=== PATIENT | female | born 1950 | race Caucasian/White ===

== ENCOUNTER → 2025-01-15 | Outpatient (CLI) | payer MEDICARE, BC ==
--- NOTE | 2025-01-17 14:10 | PE ---
EXAMINATION TYPE: PET CT fusion skull to thigh DATE OF EXAM: 01/16/2025 CLINICAL INDICATION:Female, 74 years old with history of R91.1 LUNG NODULE; TECHNIQUE: Following the intravenous administration of 8.9 mCi of F-18 FDG, whole body images are p erformed from the skull base to the Mid thigh. Images are reviewed on the computer in the coronal, a xial, and sagittal planes. Reconstructed rotating images are created on independent workstation and reviewed on the computer. A non-contrast CT is performed in conjunction with the PET scan. Glucose level 97 mg/dL CT DLP: 233 mGycm, Automated exposure control for dose reduction was used. COMPARISON: CT none, PET/CT None, MRI: None FINDINGS: Mediastinal SUV mean is 2.5. Hepatic parenchyma SUV mean is 4.0. SKULL BASE AND NECK: * No suspicious radiotracer activity. * Suspected physiologic diffuse uptake throughout the salivary glands. CHEST, MEDIASTINUM, AND HILAR REGION: * Right upper lobe somewhat spiculated nodule measuring 15 x 9 mm Max SUV 10.2. * No enlarged FDG avid lymph nodes identified. ABDOMEN AND PELVIS: Focus of uptake within the left adrenal gland which is poorly visualized on noncontrast CT SUV 5.1. MUSCULOSKELETAL STRUCTURES: No suspicious radiotracer activity. OTHER CT: Severe atherosclerosis of the arterial vasculature. Moderate to severe coronary artery athe rosclerosis. Aortic valve consultations are present. Infrarenal abdominal aortic dilation up to 29 mm . Large stool burden throughout the colon. Nonobstructing right 2 mm calculus. No left renal calculi. IMPRESSION: 1. Right upper lobe 15 x 8 mm pulmonary nodule with increased uptake compatible with malignancy. 2. No enlarged mediastinal lymph nodes to suggest mediastinal metastatic disease. 3. Indeterminate left adrenal focus of uptake given lack of other evidence for metastatic disease, t his is favored to be benign. 4. Diffuse uptake throughout the salivary glands, likely physiologic. [facility], , 01/17/2025 2:08 PM
== END | disposition home or self-care (01) ==
LOC: RADPETMAIN 15:27
PROVIDERS: ATTEND Internal Medicine
DX: R91.1 Solitary pulmonary nodule (principal)
CPT/HCPCS: 78815; A9552

== ENCOUNTER → 2025-01-27 | Outpatient (CLI) | payer MEDICARE, BC ==
--- NOTE | 2025-01-27 15:36 | CT ---
EXAMINATION TYPE: CT Chest [facility] protocol DATE OF EXAM: 01/27/2025 COMPARISON: None CLINICAL INDICATION: Female, 74 years old with history of R91.1 SOLITARY PULMONARY NODULE; PHH, spot on lung TECHNIQUE: CT scan of the thorax is performed without IV contrast. CT DLP: 177.[address] CTDI: mGy Automated exposure control for dose reduction was used. FINDINGS: There are moderate emphysematous changes. There is a 15.2 mm spiculated mass in the right upper lobe which is highly suspicious for neoplasm. There is a 5.4 mm nodular density left upper lobe laterally which could represent a metastatic lesion . There is no airspace consolidation. There is no abnormal interstitial density. There is no pleural effusion or pneumothorax. Limited scanning through the upper abdomen reveals no gross abnormality. There are no focal osseous lesions. IMPRESSION: 1. 15.2 mm spiculated mass in the right upper lobe highly suspicious for neoplasm. 2. 5.4 mm nodule in the left upper lobe which could represent metastatic deposit. 3. Moderate emphysematous changes. 4. No acute cardiopulmonary disease. [facility], , 01/27/2025 3:34 PM
== END | disposition home or self-care (01) ==
LOC: RADCTMAIN 14:39
PROVIDERS: ATTEND Internal Medicine Critical Care Medicine
DX: R91.1 Solitary pulmonary nodule (principal); J43.9 Emphysema, unspecified; R91.8 Other nonspecific abnormal finding of lung field
CPT/HCPCS: 71250